=== PATIENT | female | born 1990 | race Caucasian/White ===

== ENCOUNTER 2022-02-28 09:45 | Inpatient (IN) | payer OTHER ==
[2022-02-28] MEDS ORDERED: FENTANYL/BUPIVACAINE/NS/PF - PCEA - 50 ML DISP.SYRIN EP ONE (10:57)
[2022-02-28 11:36] VITALS: BMI 30.2
[2022-02-28] MEDS ORDERED: ELECTROLYTE-148 SOLN 1,000 ML IV SCH (11:45)
[2022-02-28 11:52] LABS: BASO % 0.1 % (0-2.0); EOS % 0.3 % (0-4.5); HEMATOCRIT 36.9 % (32.4-45.2); HEMOGLOBIN 12.6 GM/dL (10.7-15.3); MCHC 34.2 g/dl (32.0-36.0); MEAN CELL VOLUME 84.8 fl (80-96); MEAN PLT VOLUME 9.8 fl (7.5-11.1); MONO % 5.3 % (3.8-10.2); NEUT % 86.3 % (42.8-82.8); PLATELET COUNT 214 10^3/uL (134-434); RBC 4.35 M/mm3 (3.60-5.2); RDW 13.9 % (11.6-15.6); WHITE BLOOD COUNT 9.6 K/mm3 (4.0-10.0)
[2022-02-28 11:54] LABS: INR 0.93 (0.83-1.09); PROTHROMBIN TIME (PATIENT) 10.7 SEC (9.7-13.0)
[2022-02-28 11:56] LABS: ACTIVATED PTT 28.6 SECONDS (25.2-36.5)
[2022-02-28 12:05] LABS: CALCIUM 8.3 mg/dL (8.5-10.1)
[2022-02-28 12:07] LABS: BLOOD UREA NITROGEN 4.9 mg/dL (7-18)
[2022-02-28 12:10] LABS: CREATININE 0.4 mg/dL (0.55-1.3)
[2022-02-28] MEDS ORDERED: LIDOCAINE HCL/EPINEPHRINE/PF 20 ML VIAL ONE (12:40)
[2022-02-28] MEDS ORDERED: LIDOCAINE HCL 1% PRESERVATIVE FREE - 30ML VIAL ONE (12:41)
[2022-02-28] MEDS ORDERED: OXYTOCIN 20 UNITS in 0.9% NS 20 UNIT/1,000 ML INFUS.BAG IV ONE (12:41)
[2022-02-28] MEDS ORDERED: BENZOCAINE 20% 57 GM BOTTLE TP PRN (14:52)
[2022-02-28] MEDS ORDERED: BENZOCAINE 28 GM HEMORRHOIDAL OINTMENT TP PRN (14:52)
[2022-02-28] MEDS ORDERED: WITCH HAZEL 50% (TUCKS) 40 PAD/JAR PAD TP PRN (14:52)
[2022-02-28] MEDS ORDERED: BISACODYL 10 MG SUPP.RECT RC PRN (14:52)
[2022-02-28] MEDS ORDERED: ACETAMINOPHEN 325 MG TABLET (FP) PO PRN (14:52)
[2022-02-28] MEDS ORDERED: oxyCODONE HCL 5 MG TABLET PO PRN (14:52)
[2022-02-28] MEDS ORDERED: METHYLERGONOVINE MALEATE 0.2 MG/1 ML AMP IM PRN (14:52)
[2022-02-28] MEDS ORDERED: OXYTOCIN 20 UNITS in 0.9% NS 20 UNIT/1,000 ML INFUS.BAG IV SCH (15:00)
[2022-02-28 15:37] LABS: CORD BASE EXCESS -4.7 mmol/L (0-2); CORD PCO2 65.2 mmHg (30-78); CORD pH 7.201 (7.14-7.44)
[2022-02-28 15:43] LABS: CORD BASE EXCESS -2.3 mmol/L (0-2); CORD PCO2 41.4 mmHg (30-78); CORD pH 7.362 (7.14-7.44)
[2022-02-28 22:30] LABS: HIV INTERPRETATION NEGATIVE (NEGATIVE)
[2022-03-01] MEDS: IBUPROFEN 600 MG TABLET (FP) PO PRN ×2 (07:25→17:08)
[2022-03-01 07:53] LABS: BASO % 0.2 % (0-2.0); EOS % 0.7 % (0-4.5); HEMATOCRIT 38.3 % (32.4-45.2); LYMPH % 16.4 % (8-40); MCHC 33.9 g/dl (32.0-36.0); MEAN CELL VOLUME 85.6 fl (80-96); MEAN PLT VOLUME 8.9 fl (7.5-11.1); MONO % 6.1 % (3.8-10.2); NEUT % 76.6 % (42.8-82.8); PLATELET COUNT 226 10^3/uL (134-434); RBC 4.47 M/mm3 (3.60-5.2); WHITE BLOOD COUNT 10.6 K/mm3 (4.0-10.0)
[2022-03-01] MEDS ORDERED: FLU VACC QS2022-23(6MOS UP)/PF 60 MCG/0.5 ML SYRINGE IM ONE (10:00)
[2022-03-01] MEDS: PRENATAL VITAMINS W/ FOLIC ACID TABLET (FP) PO SCH (10:08)
[2022-03-01 14:38] VITALS: RESP 18
[2022-03-01] MEDS ORDERED: SENNOSIDES/DOCUSATE COMBO (SENNA PLUS) TABLET (UD) PO PRN (22:00)
[2022-03-02] MEDS: IBUPROFEN 600 MG TABLET (FP) PO PRN (05:34)
[2022-03-02 11:31] VITALS: BP 137/92; PULSE 86; TEMP 95.5
[2022-03-02] MEDS: PRENATAL VITAMINS W/ FOLIC ACID TABLET (FP) PO SCH (11:42)
== END 2022-03-02 14:50 | disposition home or self-care (01) | DRG 807 ==
LOC: JLDR 09:45 → J3W 16:25
PROVIDERS: ADMIT Obstetrics & Gynecology; ATTEND Obstetrics & Gynecology
PROC: 10E0XZZ Delivery of Products of Conception, External Approach (ICD-10-PCS; principal; 2022-02-28)
DX: O80 Encounter for full-term uncomplicated delivery (principal); Z3A.40 40 weeks gestation of pregnancy; Z37.0 Single live birth
CPT/HCPCS: 36415; 36600; 59409; 80048; 82803; 85025; 85610; 85730; 86780; 86850; 86900; 86901; 87389; C9803-CS; G0008; Q2036; U0003; U0005